=== PATIENT | female | born 1995 | race Caucasian/White ===

== ENCOUNTER → 2020-01-11 10:44 | Outpatient (BNVA) | payer OTHER, SELFPAY | PROVIDERS: Visit Provider Advanced Practice Midwife | DX: Z76.89 Persons encountering health services in other specified circumstances (principal) ==

== ENCOUNTER 2023-12-17 15:52 | Emergency (ER) | payer OTHER, SELFPAY ==
[2023-12-17 16:01] VITALS: BP 100/70; PULSE 98; O2SAT 98
--- NOTE | 2023-12-17 16:15 | ED.ABDPAIN ---
HPI - Abdominal Pain General Chief Complaint: Abdominal Pain Stated Complaint: L lower abd pain Related Data Home Medications ?Medication ?Instructions ?Recorded ?Confirmed doxylamine succinate 25 mg tablet mg PO 01/11/20 01/11/20 ferrous sulfate 325 mg (65 mg 325 mg PO DAILY 01/11/20 01/11/20 iron) tablet vitamin with calcium 1 tab PO DAILY 01/11/20 01/11/20 no.72-iron 27 mg-folic acid 1 mg tablet ( Plus (calcium carbonate)) Allergies Allergy/AdvReac Type Severity Reaction Status Date / Time seasonal Allergy Unknown Unknown Uncoded 12/17/23 16:17 [facility] Past Medical History Surgical History Hx of eye surgery Family History Family History Father History of prediabetes History of depression History of anxiety Hx of schizophrenia Mother Hx of abnormal cervical Pap smear Paternal Grandmother Hx of cancer of lung Maternal Grandmother History of breast cancer in female Social History Social History Alcohol intake: never Advance Directives: No Advance Directives Information Provided: No Gender identity: Female Physical Exam ED Vital Signs: BMI result Body Mass Index 19.6 Course Course Course Narrative: This is an RME done by SABIHA Enriquez: Additional HPI, ROS, PE not included below will be deferred to primary provider. 28yo F with PMHx of presenting with CC waves of cramping LLQ abdominal pain currently menstruating. This is worse than her typical periods. Denies recent sexual activity, fevers, chills. Appearance: Alert.? Oriented X3.? No acute cardiopulmonary distress distress.? Head: Normocephalic, atraumatic CVS: Pulses normal.? Respiratory: No respiratory distress.? Skin: ? Normal skin color. Neuro: Oriented X 3. Medical Decision Making Lab Data 12/17/23 16:58 12/17/23 16:58 Labs: Lab Results 12/17/23 Range/Units 16:58 WBC 7.5 (4.8-10.8) X10*3/uL RBC 4.40 (4.20-5.50) X10*6/uL Hgb 13.9 (12.0-16.0) g/dl Hct 39.8 (37.0-47.0) % MCV 90.5 (80.0-98.0) fL MCH 31.6 (27.0-33.0) pg MCHC 34.9 (31.0-35.0) g/dl RDW 12.2 (11.0-16.0) % Plt Count 158 L (160-400) X10*3/uL MPV 10.6 (9.4-12.3) fL Immature Gran % (Auto) 0.3 (0.0-0.4) % Neut % (Auto) 66.5 (45-73) % Lymph % (Auto) 20.7 (20-40) % [place] % (Auto) 10.3 (2-11) % Eos % (Auto) 1.9 (0-4) % Baso % (Auto) 0.3 (0-2) % Lymph # (Auto) 1.6 (1.2-4.9) X10*3/uL [place] # (Auto) 0.8 (0.1-1.2) X10*3/uL Eos # (Auto) 0.1 (0.0-0.4) X10*3/uL Baso # (Auto) 0.0 (0.0-0.2) X10*3/uL Abs Immat Gran (auto) 0.02 (0.00-0.03) X10*3/uL Absolute Neuts (auto) 5.0 (2.0-8.3) x10*3/uL Absolute Nucleated RBC 0.000 (0.0-0.012) X10*3/uL Nucleated RBC % (auto) 0.0 (0.0-0.2) /100WBC Sodium 139 (135-145) mmol/L Potassium 3.9 (3.3-5.1) mmol/L Chloride 109 H (96-108) mmol/L Carbon Dioxide 24 (22-29) mmol/L Anion Gap 10 L (12-20) BUN 8 L (9-16) mg/dL Creatinine 0.67 (0.5-1.4) mg/dL Estim Creat Clear Calc 100.8 Estimated GFR > 60 Random Glucose 91 (60-115) mg/dL Calcium 8.6 (8.4-10.2) mg/dL Magnesium 1.9 (1.6-2.6) mg/dL Total Bilirubin 0.2 (0.0-1.0) mg/dL AST 19 (5-31) U/L ALT 12 (0-31) U/L Alkaline Phosphatase 70 (39-117) U/L Total Protein 6.7 (6.5-8.0) g/dL Albumin 4.0 (3.5-5.0) g/dL Beta HCG, Quant < 2 mIU/mL Urine Color Yellow Urine Appearance Clear Urine pH 6.0 (5.0-9.0) Ur Specific [place] 1.025 (1.005-1.025) Urine Protein 30 (1+) H (Neg-Trace) mg/dL Urine Glucose (UA) Negative (Negative) mg/dL Urine Ketones Negative (Negative) mg/dL Urine Blood Large (3+) H (Negative) Urine Nitrite Negative (Negative) Ur Leukocyte Esterase Trace H (Negative) Urine RBC >20 H (0-2) /HPF Urine WBC 0-5 (0-5) /HPF Ur Squamous Epith Cells 3-5 (0-2) /HPF Urine Bacteria 1+ (None Seen) Hyaline Casts 0-2 (0-2) /LPF Medications Administered Discontinued Medications Generic Name Dose Route Start Last Admin Trade Name Coreyq PRN Reason Stop Dose Admin Ibuprofen 600 mg 12/17/23 17:02 12/17/23 17:38 Ibuprofen 600 Mg Tablet PO 12/17/23 17:03 600 mg ONCE ONE Administration Discharge Plan Discharge Clinical Impression: Eloped from emergency department Patient Disposition: Left W/O Completing Treatment Prescriptions: No Action Nighttime Sleep-Aid (doxylamn) 25 mg tablet PO ferrous sulfate 325 mg (65 mg iron) tablet 325 mg PO DAILY Plus (calcium carb) 27 mg iron- 1 mg tablet 1 tab PO DAILY Discharge Date/Time: 12/17/23 21:07
[2023-12-17 16:16] VITALS: BP 113/60; PULSE 92; RESP 18; TEMP 36.8; O2SAT 97; BMI 19.6
[2023-12-17 17:05] LABS: MANUAL DIFF FLAG NO
[2023-12-17 17:06] LABS: Basophils Percent Auto 0.3 % (0-2); Eosinophils Absolute Auto 0.1 X10*3/uL (0.0-0.4); Eosinophils Percent Auto 1.9 % (0-4); Hematocrit 39.8 % (37.0-47.0); Hemoglobin 13.9 g/dl (12.0-16.0); Imm Gran Abs Auto 0.02 X10*3/uL (0.00-0.03); Imm Gran Pct Auto 0.3 % (0.0-0.4); Lymphocytes Absolute Auto 1.6 X10*3/uL (1.2-4.9); Lymphocytes Percent Auto 20.7 % (20-40); Mean Corpuscular HGB Conc 34.9 g/dl (31.0-35.0); Mean Corpuscular Hemoglobin 31.6 pg (27.0-33.0); Mean Corpuscular Volume 90.5 fL (80.0-98.0); Mean Platelet Volume 10.6 fL (9.4-12.3); Monocytes Absolute Auto 0.8 X10*3/uL (0.1-1.2); Monocytes Percent Auto 10.3 % (2-11); Neutrophils Percent Auto 66.5 % (45-73); Platelet Count 158 X10*3/uL (160-400); Red Cell Distribution Width 12.2 % (11.0-16.0); White Blood Count 7.5 X10*3/uL (4.8-10.8)
[2023-12-17 17:08] LABS: Appearance Urine Clear; Color Urine Yellow; Glucose Urine UA Negative (Negative); Leukocyte Esterase Urine Trace (Negative); Nitrite Urine Negative (Negative); Specific Gravity - Urine 1.025 (1.005-1.025); UMIC TRIGGER UACC YES; Urine Blood Large (3+) (Negative); Urine Ketones Negative (Negative); Urine Protein 30 (1+) mg/dL (Neg-Trace)
[2023-12-17 17:13] LABS: Bacteria Urine 1+ (None Seen); Hyaline Casts Urine 0-2 /LPF (0-2); RBC Urine >20 /HPF (0-2); WBC Urine 0-5 /HPF (0-5)
[2023-12-17 17:36] LABS: Alanine Aminotransferase 12 U/L (0-31); Alkaline Phosphatase 70 U/L (39-117); Anion Gap 10 (12-20); Aspartate Amino Transferase 19 U/L (5-31); Bilirubin Total 0.2 mg/dL (0.0-1.0); Blood Urea Nitrogen 8 mg/dL (9-16); Calcium 8.6 mg/dL (8.4-10.2); Carbon Dioxide 24 mmol/L (22-29); Chloride 109 mmol/L (96-108); Creatinine Clr Calc Pharmacy 100.8; Estimated Glomerular Filt Rate > 60; Glucose Random 91 mg/dL (60-115); HCG Quantitative < 2 mIU/mL; Magnesium 1.9 mg/dL (1.6-2.6); Potassium 3.9 mmol/L (3.3-5.1); Sodium 139 mmol/L (135-145); Total Protein 6.7 g/dL (6.5-8.0)
[2023-12-17] MEDS: Ibuprofen 600 MG TABLET PO (17:38)
--- NOTE | 2023-12-17 20:31 | PC.NURSE ---
pt no answer when called for reassessment.
== END 2023-12-17 21:07 | disposition left against medical advice (07) ==
LOC: HO.ED 21:06
PROVIDERS: Physician Assistant; Emergency Provider Emergency Medicine
DX: R10.32 Left lower quadrant pain (principal)
CPT/HCPCS: 36415; 80053; 81001; 83735; 84702; 85025; 99281; 99283